=== PATIENT | male | born 1975 | race Caucasian/White ===

== ENCOUNTER 2016-08-26 16:02 | Inpatient (IN) | payer OTHER ==
[2016-08-26 18:11] VITALS: BMI 21.9
--- NOTE | 2016-08-26 19:54 | HP ---
COWS - Scale Resting Pulse: 1= [place] 81-100 Sweatin= Chills/Flushing Restless Observation: 1= Difficult to Sit Still Pupil Size: 0= Normal to Room Light Bone or Joint Aches: 2= Severe Diffuse Aches Runny Nose/ Eye Tearin= Runny Nose/Eyes GI Upset > 30mins: 1= Stomach Cramp Tremor Observation: 2= Slight Tremor Visible Yawning Observation: 2= >3x During Session Anxiety or Irritability: 2=Irritable/Anxious Goose Flesh Skin: 0=Smooth Skin COWS Score: 14 Admission [facility] Chief Complaint: WITHDRAWAL SX Allergies/Adverse Reactions: Allergies Allergy/AdvReac Type Severity Reaction Status Date / Time No Known Allergies Allergy Verified 10/29/13 17:07 History of Present Illness: 40 YEARS OLD MALE WITH LONG HISTORY OF OPIOID NICOTINE DEPENDENCE HAS DIABETES II HYPERTENSION WEIGHT LOSS AND DEPRESSION IS ADMITTED TO DETOX Exam Limitations: No Limitations - Ebola screening Have you traveled outside of the country in the last 21 days: No Have you had contact with anyone from an Ebola affected area: No Have you been sick,other than usual withdrawal symptoms: No Do you have a fever: No - Review of Systems Constitutional: Chills, Loss of Appetite, Changes in sleep, Unintentional Wgt. Loss, Unexplained wgt Loss EENT: reports: No Symptoms Reported Respiratory: reports: SOB with Exertion Cardiac: reports: No Symptoms Reported, Other (HEART ATTACK 2010) GI: reports: Poor Appetite, Poor Fluid Intake, Abdominal cramping : reports: No Symptoms Reported Musculoskeletal: reports: No Symptoms Reported Integumentary: reports: Change in Color (BOTH INNER ELBOWS) Neuro: reports: Tremors Endocrine: reports: No Symptoms Reported Hematology: reports: No Symptoms Reported Psychiatric: reports: Judgement Intact, Orientated x3, Depressed Other Systems: Reviewed and Negative Patient History - Patient Medical History Hx Anemia: No Hx Asthma: No Hx Chronic Obstructive Pulmonary Disease (COPD): No Hx Cancer: No Hx Cardiac Disorders: Yes (CAD - [place] 2010) Hx Congestive Heart Failure: No Hx Hypertension: No Hx Hypercholesterolemia: No Hx Pacemaker: No HX Cerebrovascular Accident: No Hx Seizures: No Hx Dementia: No Hx Diabetes: Yes (METFORMIN 1000MG) Hx Gastrointestinal Disorders: No Hx Liver Disease: No Hx Genitourinary Disorders: No Hx Sexually Transmitted Disorders: No Hx Renal Disease (ESRD): No Hx Thyroid Disease: No Hx Human Immunodeficiency Virus (HIV): No (NEGATIVE HX) Hx Hepatitis C: No Hx Depression: Yes Hx Suicide Attempt: No Hx Bipolar Disorder: No Hx Schizophrenia: No - Patient Surgical History Past Surgical History: Yes Hx Neurologic Surgery: No Hx Cataract Extraction: No Hx Cardiac Surgery: Yes (Cardiac cath with 1 stent in 2010) Hx Lung Surgery: No Hx Breast Surgery: No Hx Breast Biopsy: No Hx Abdominal Surgery: No Hx Appendectomy: No Hx Cholecystectomy: No Hx Genitourinary Surgery: No Hx Orthopedic Surgery: No Other Surgical History: stent in 2010 Anesthesia Reaction: No - PPD History Previous Implant?: Yes Documented Results: Negative w/o proof Implanted On Prior R Admission?: Yes Date: 08/08/13 PPD to be Administered?: No - Smoking Cessation Smoking history: Current every day smoker Have you smoked in the past 12 months: Yes Aproximately how many cigarettes per day: 20 Cigars Per Day: 0 Hx Chewing Tobacco Use: No Initiated information on smoking cessation: Yes 'Breaking Loose' booklet given: 08/26/16 - Substance & Tx. History Hx Alcohol Use: No Hx Substance Use: Yes Substance Use Type: Opiates Hx Substance Use Treatment: Yes - Substances Abused Heroin Route: Injection Frequency: Daily Amount used: 15 BAGS Age of first use: 28 Date of Last Use: 08/26/16 Family Disease History - Family Disease History Family Disease History: Diabetes: Father (), Mother (), CA: Father, Mother Admission Physical Exam BHS - Vital Signs Vital Signs: Vital Signs - 24 hr 08/26/16 18:07 Temperature 97.8 F Pulse Rate 96 H Respiratory 20 Rate Blood Pressure 146/96 - Physical General Appearance: Yes: Appropriately Dressed, Mild Distress, Thin, Tremorous, Irritable, Sweating, Anxious HEENTM: Yes: Hearing grossly Normal, Normal ENT Inspection, Normocephalic, Normal Voice Respiratory: Yes: Chest Non-Tender, Lungs Clear, Normal Breath Sounds, No Respiratory Distress, No Accessory Muscle Use Neck: Yes: Supple, Trachea in good position Breast: Yes: Breasts Symetrical Cardiology: Yes: Regular Rhythm, S1, S2, Tachycardia Abdominal: Yes: Non Tender, Soft Genitourinary: Yes: Within Normal Limits Back: Yes: Normal Inspection Musculoskeletal: Yes: full range of Motion, Gait Steady, Back pain, Muscle Pain Extremities: Yes: Within Normal Limits, Non-Tender, Tremors Neurological: Yes: Fully Oriented, Alert, Motor Strength 5/5, Normal Response, Depressed Affect Integumentary: Yes: Warm, Track Vazquez Lymphatic: Yes: Within Normal Limits - Diagnostic (1) Nicotine dependence Current Visit: Yes Status: Active (2) Opioid dependence with withdrawal Current Visit: Yes Status: Acute (3) Diabetes mellitus type II, controlled Current Visit: Yes Status: Chronic Qualifiers: Diabetes mellitus complication status: without complication Diabetes mellitus fci insulin use: with fci use Qualified Code(s): E11.9 - Type 2 diabetes mellitus without complications; Z79.4 - group home ( current) use of insulin (4) Weight loss Current Visit: Yes Status: Acute (5) History of heart attack Current Visit: Yes Status: Resolved Cleared for Admission [facility] - Detox or Rehab [facility] Level of Care: Medically Managed Detox Regimen/Protocol: Methadone [facility] Breath Alcohol Content Breath Alcohol Content: 0 Urine Drug Screen - Results Drug Screen Negative: No Urine Drug Screen Results: OPI-Opiates
[2016-08-26] MEDS ORDERED: guaiFENesin/D-METHORPHAN HB 10 ML UNIT-DOSE CUPS PO PRN (20:01)
[2016-08-26] MEDS ORDERED: MAG HYDROX/AL HYDROX/SIMETH 30 ML UNIT-DOSE CUP PO PRN (20:01)
[2016-08-26] MEDS ORDERED: NICOTINE POLACRILEX 4 MG GUM BC PRN (20:01)
[2016-08-26] MEDS ORDERED: LOPERAMIDE HCL 2 MG CAPSULE PO PRN (20:01)
[2016-08-26] MEDS ORDERED: METHADONE HCL 10 MG TABLET (FOR DETOX USE ONLY) PO ONE ×2 (20:01→23:00)
[2016-08-26] MEDS ORDERED: ACETAMINOPHEN 325 MG TABLET (FP) PO PRN (20:01)
[2016-08-26] MEDS ORDERED: diphenhydrAMINE HCL 50 MG CAPSULE PO PRN (20:01)
[2016-08-26] MEDS ORDERED: MAGNESIUM CITRATE 300 ML BOTTLE PO PRN (20:01)
[2016-08-26] MEDS ORDERED: MENTHOL/PHENOL 1 EACH UD MM PRN (20:01)
[2016-08-26] MEDS ORDERED: IBUPROFEN 400 MG TABLET (FP) PO PRN (20:01)
[2016-08-26] MEDS ORDERED: MAGNESIUM HYDROX 2400MG/30ML ORAL SUSPENSION 30 ML CUP PO PRN (20:01)
[2016-08-26] MEDS ORDERED: P-EPHED 60MG/TRIPROLIDI 2.5MG TABLET PO PRN (20:01)
[2016-08-26] MEDS ORDERED: METHADONE HCL 10 MG TABLET (FOR DETOX USE ONLY) ONE (23:04)
[2016-08-26] MEDS ORDERED: INSULIN (NOVOLOG) ASPART 100 UNITS/ML 10ML VIAL ONE (23:04)
[2016-08-26] MEDS: INSULIN DETEMIR 100 UNITS/ML MDV SQ SCH (23:10)
[2016-08-26] MEDS: INSULIN SLIDING SCALE (NOVOLOG) 1 VIAL SQ SCH (23:10)
[2016-08-26] MEDS: THIAMINE HCL 100 MG TABLET (FP) PO SCH (23:10)
[2016-08-27 00:12] LABS: URINE APPEARANCE CLEAR; URINE BILIRUBIN NEGATIVE (NEGATIVE); URINE BLOOD NEGATIVE (NEGATIVE); URINE COLOR STRAW; URINE GLUCOSE (UA) 3+ (NEGATIVE); URINE KETONE 1+ (NEGATIVE); URINE LEUK ESTERASE NEGATIVE (NEGATIVE); URINE NITRITE NEGATIVE (NEGATIVE); URINE PROTEIN NEGATIVE (NEGATIVE); URINE UROBILINOGEN NEGATIVE E.U./dl (0.2-1.0)
[2016-08-27] MEDS: diazePAM 5 MG TABLET PO PRN ×5 (05:19→22:53)
[2016-08-27] MEDS: INSULIN SLIDING SCALE (NOVOLOG) 1 VIAL SQ SCH ×4 (08:00→22:55)
[2016-08-27] MEDS: metFORMIN HCL 500 MG TABLET (FP) PO SCH ×2 (08:00→17:50)
[2016-08-27] MEDS ORDERED: INSULIN (NOVOLOG) ASPART 100 UNITS/ML 10ML VIAL ONE ×4 (08:39→22:48)
[2016-08-27] MEDS ORDERED: METHADONE HCL 10 MG TABLET (FOR DETOX USE ONLY) PO ONE (10:00)
[2016-08-27 10:31] LABS: MCH 30.6 pg (25.7-33.7); MCHC 34.2 g/dl (32.0-35.9); MEAN CELL VOLUME 89.3 fl (80-96); MEAN PLT VOLUME 8.3 fl (7.5-11.1); PLATELET COUNT 166 K/MM3 (134-434); RDW 12.1 % (11.9-15.9); WHITE BLOOD COUNT 6.4 K/mm3 (4.0-10.0)
[2016-08-27] MEDS: ASPIRIN 81 MG CHEWABLE TABLETS PO SCH (10:33)
[2016-08-27] MEDS: PRENATAL VITAMINS W/ FOLIC ACID TABLET (FP) PO SCH (10:33)
[2016-08-27] MEDS: LISINOPRIL 5 MG TABLET (FP) PO SCH (10:33)
[2016-08-27] MEDS: NICOTINE 21 MG/24 HOURS TOPICAL PATCH TD SCH (10:36)
[2016-08-27 11:11] LABS: ALBUMIN 3.1 g/dl (3.4-5.0); ALK PHOS 77 U/L (45-117); ANION GAP 10 (8-16); BILIRUBIN,TOTAL 0.2 mg/dL (0.2-1.0); CALCIUM 8.4 mg/dL (8.5-10.1); CO2 29 mmol/L (21-32); CREATININE 0.8 mg/dL (0.7-1.3); GLUCOSE,RANDOM 275 mg/dL (74-106); SGOT/AST 6 U/L (15-37); SGPT/ALT 13 U/L (12-78); TOT PROT 5.7 g/dl (6.4-8.2)
--- NOTE | 2016-08-27 11:39 | PN ---
[facility] COWS - Scale Resting Pulse: 0= [place] 80 or Below Sweatin= Chills/Flushing Restless Observation: 3= Extraneous Movement Pupil Size: 1= Pupils >than Normal Bone or Joint Aches: 2= Severe Diffuse Aches Runny Nose/ Eye Tearin= Runny Nose/Eyes GI Upset > 30mins: 3= Vomiting/Diarrhea Tremor Observation of Outstretched Hands: 2= Slight Tremor Visible Yawning Observation: 1= 1-2x During Session Anxiety or Irritability: 2=Irritable/Anxious Goose Flesh Skin: 0=Smooth Skin COWS Score: 17 BHS Progress Note (SOAP) Subjective: ALERT,IRRITABLE,ANXIOUS,INTERRUPTED SLEEP,TREMOR,PAIN IN THE BODY AND BACK Objective: 08/27/16 11:36 Vital Signs Temperature 98.3 F 08/27/16 09:45 Pulse Rate 62 08/27/16 09:45 Respiratory Rate 18 08/27/16 09:45 Blood Pressure 117/71 08/27/16 09:45 O2 Sat by Pulse Oximetry (%) EKG SINUS BRADYCARDIA 53/CA,INVERTED T IN V2,V3 NO CHAEST PAIN,NO SOB,NO DIZZINESS Laboratory Last Values WBC 6.4 K/mm3 (4.0-10.0) 08/27/16 07:00 RBC 4.36 M/mm3 (4.00-5.60) 08/27/16 07:00 Hgb 13.3 GM/dL (11.7-16.9) D 08/27/16 07:00 Hct 38.9 % (35.4-49) 08/27/16 07:00 MCV 89.3 fl (80-96) 08/27/16 07:00 MCHC 34.2 g/dl (32.0-35.9) 08/27/16 07:00 RDW 12.1 % (11.9-15.9) 08/27/16 07:00 Plt Count 166 K/MM3 (134-434) 08/27/16 07:00 MPV 8.3 fl (7.5-11.1) 08/27/16 07:00 POC Glucometer 258 UNITS (()) 08/27/16 05:21 Urine Color Straw 08/26/16 00:00 Urine Appearance Clear 08/26/16 00:00 Urine pH 5.0 (5.0-8.0) D 08/26/16 00:00 Urine Protein Negative (NEGATIVE) 08/26/16 00:00 Urine Glucose (UA) 3+ (NEGATIVE) H 08/26/16 00:00 Urine Ketones 1+ (NEGATIVE) H 08/26/16 00:00 Urine Blood Negative (NEGATIVE) 08/26/16 00:00 Urine Nitrite Negative (NEGATIVE) 08/26/16 00:00 Urine Bilirubin Negative (NEGATIVE) 08/26/16 00:00 Urine Urobilinogen Negative E.U./dl (0.2-1.0) 08/26/16 00:00 Ur Leukocyte Esterase Negative (NEGATIVE) 08/26/16 00:00 LABS PENDING Assessment: 08/27/16 11:38 WITHDRAWAL SYMPTOM Plan: CONTINUE DETOX,BGM MONITORING WITH INSULIN COVERAGE
--- NOTE | 2016-08-27 15:33 | CONSULT ---
[facility] Psychiatric Consult - Data Date of interview: 08/27/16 Admission source: [facility] Identifying data: This is a 40 year old single male who is employed and domiciled. Substance Abuse History: Patient reports he is using heroin 10 -15 bags a day. Medical History: diabetes, CAD, Hypertension Psychiatric History: patient reports history of insomnia and anxiety, states was on seroquel in the past for insomnia, at present does not want any medications "just detox meds". Physical/Sexual Abuse/Trauma History: denies history of abuse Mental Status Exam - Mental Status Exam Alert and Oriented to: Time, Place, Person Cognitive Function: Grossly Intact Patient Appearance: Well Groomed Affect: Appropriate, Mood Congruent Patient Behavior: Sedated Speech Pattern: Clear, Appropriate Voice Loudness: Normal Thought Process: Intact, Circumstantial Thought Disorder: Not Present Hallucinations: Denies Suicidal Ideation: Denies Homicidal Ideation: Denies Insight/Judgement: Fair Sleep: Fair Appetite: Fair Muscle strength/Tone: Normal Gait/Station: Normal Psychiatric Findings - Problem List ([place] 1, 2,3) (1) Opioid dependence with withdrawal Current Visit: Yes Status: Acute - Initial Treatment Plan Initial Treatment Plan: continue detox. protocol.
--- NOTE | 2016-08-27 17:19 | EKG ---
Test Reason : Blood Pressure : / mmHG Vent. Rate : 056 BPM Atrial Rate : 056 BPM P-R Int : 146 ms QRS Dur : 098 ms QT Int : 458 ms P-R-T Axes : 032 037 -33 degrees QTc Int : 441 ms SINUS BRADYCARDIA WHEN COMPARED WITH ECG OF 26-AUG-2016 21:36, T WAVE VARIATION Confirmed by KEIRY RILEY MD ([id number]) on 08/27/2016 5:19:29 PM Referred By: Confirmed By:KEIRY RILEY MD
--- NOTE | 2016-08-27 17:20 | EKG ---
Test Reason : Blood Pressure : / mmHG Vent. Rate : 061 BPM Atrial Rate : 061 BPM P-R Int : 140 ms QRS Dur : 100 ms QT Int : 470 ms P-R-T Axes : 050 033 -63 degrees QTc Int : 473 ms NORMAL SINUS RHYTHM CANNOT RULE OUT INFERIOR INFARCT , AGE UNDETERMINED ABNORMAL ECG WHEN COMPARED WITH ECG OF 09-AUG-2013 14:22, QT HAS LENGTHENED Confirmed by KEIRY RILEY MD ([id number]) on 08/27/2016 5:20:20 PM Referred By: Confirmed By:KEIRY RILEY MD
[2016-08-27] MEDS: POTASSIUM CHLORIDE ORAL LIQUID 20 MEQ/15 ML PO SCH ×2 (19:00→22:55)
[2016-08-27] MEDS: THIAMINE HCL 100 MG TABLET (FP) PO SCH (22:53)
[2016-08-27] MEDS: INSULIN DETEMIR 100 UNITS/ML MDV SQ SCH (22:55)
[2016-08-28] MEDS: diazePAM 5 MG TABLET PO PRN ×5 (03:04→22:22)
[2016-08-28] MEDS ORDERED: INSULIN (NOVOLOG) ASPART 100 UNITS/ML 10ML VIAL ONE ×4 (07:37→21:25)
[2016-08-28] MEDS: metFORMIN HCL 500 MG TABLET (FP) PO SCH ×2 (07:38→16:47)
[2016-08-28] MEDS: INSULIN SLIDING SCALE (NOVOLOG) 1 VIAL SQ SCH ×4 (07:40→22:24)
[2016-08-28] MEDS ORDERED: METHADONE HCL 5 MG TABLET (FOR DETOX USE ONLY) PO ONE (10:00)
[2016-08-28] MEDS: ASPIRIN 81 MG CHEWABLE TABLETS PO SCH (10:46)
[2016-08-28] MEDS: PRENATAL VITAMINS W/ FOLIC ACID TABLET (FP) PO SCH (10:46)
[2016-08-28] MEDS: LISINOPRIL 5 MG TABLET (FP) PO SCH (10:46)
[2016-08-28] MEDS: POTASSIUM CHLORIDE ORAL LIQUID 20 MEQ/15 ML PO SCH ×2 (10:46→22:24)
[2016-08-28] MEDS: NICOTINE 21 MG/24 HOURS TOPICAL PATCH TD SCH (11:15)
--- NOTE | 2016-08-28 11:30 | PN ---
S COWS - Scale Resting Pulse: 0= [place] 80 or Below Sweatin=Flushed/Facial Moisture Restless Observation: 1= Difficult to Sit Still Pupil Size: 0= Normal to Room Light Bone or Joint Aches: 2= Severe Diffuse Aches Runny Nose/ Eye Tearin= Runny Nose/Eyes GI Upset > 30mins: 2= Nausea/Diarrhea Tremor Observation of Outstretched Hands: 2= Slight Tremor Visible Yawning Observation: 2= >3x During Session Anxiety or Irritability: 2=Irritable/Anxious Goose Flesh Skin: 0=Smooth Skin COWS Score: 15 S Progress Note (SOAP) Subjective: agitation anxiety sweats irritable interrupted sleep Objective: 08/28/16 11:29 Vital Signs Temperature 96.4 F L 08/28/16 09:43 Pulse Rate 63 08/28/16 09:43 Respiratory Rate 16 08/28/16 09:43 Blood Pressure 133/88 08/28/16 09:43 O2 Sat by Pulse Oximetry (%) Laboratory Tests 08/26/16 08/26/16 08/26/16 00:00 21:27 23:00 WBC RBC Hgb Hct MCV MCHC RDW Plt Count MPV Sodium Potassium Chloride Carbon Dioxide Anion Gap BUN Creatinine Creat Clearance w eGFR POC Glucometer 458 491 Random Glucose Calcium Total Bilirubin AST ALT Alkaline Phosphatase Total Protein Albumin Urine Color Straw Urine Appearance Clear Urine pH 5.0 D Ur Specific [place] <= 1.005 Urine Protein Negative Urine Glucose (UA) 3+ H Urine Ketones 1+ H Urine Blood Negative Urine Nitrite Negative Urine Bilirubin Negative Urine Urobilinogen Negative Ur Leukocyte Esterase Negative RPR Titer 08/27/16 08/27/16 08/27/16 05:21 07:00 07:00 WBC 6.4 RBC 4.36 Hgb 13.3 D Hct 38.9 MCV 89.3 MCHC 34.2 RDW 12.1 Plt Count 166 MPV 8.3 Sodium 139 Potassium 3.4 L Chloride 100 Carbon Dioxide 29 Anion Gap 10 BUN 18 D Creatinine 0.8 D Creat Clearance w eGFR > 60 POC Glucometer 258 Random Glucose 275 H Calcium 8.4 L Total Bilirubin 0.2 D AST 6 L D ALT 13 D Alkaline Phosphatase 77 D Total Protein 5.7 L Albumin 3.1 L Urine Color Urine Appearance Urine pH Ur Specific [place] Urine Protein Urine Glucose (UA) Urine Ketones Urine Blood Urine Nitrite Urine Bilirubin Urine Urobilinogen Ur Leukocyte Esterase RPR Titer 08/27/16 08/27/16 08/27/16 07:00 11:30 17:48 WBC RBC Hgb Hct MCV MCHC RDW Plt Count MPV Sodium Potassium Chloride Carbon Dioxide Anion Gap BUN Creatinine Creat Clearance w eGFR POC Glucometer 410 304 Random Glucose Calcium Total Bilirubin AST ALT Alkaline Phosphatase Total Protein Albumin Urine Color Urine Appearance Urine pH Ur Specific [place] Urine Protein Urine Glucose (UA) Urine Ketones Urine Blood Urine Nitrite Urine Bilirubin Urine Urobilinogen Ur Leukocyte Esterase RPR Titer Nonreactive 08/27/16 08/28/16 22:46 05:33 WBC RBC Hgb Hct MCV MCHC RDW Plt Count MPV Sodium Potassium Chloride Carbon Dioxide Anion Gap BUN Creatinine Creat Clearance w eGFR POC Glucometer 313 209 Random Glucose Calcium Total Bilirubin AST ALT Alkaline Phosphatase Total Protein Albumin Urine Color Urine Appearance Urine pH Ur Specific [place] Urine Protein Urine Glucose (UA) Urine Ketones Urine Blood Urine Nitrite Urine Bilirubin Urine Urobilinogen Ur Leukocyte Esterase RPR Titer potassium 3.4; replenish with k-dur 20meq x 4 days awake/alert ambulating no acute distress Assessment: 08/28/16 11:30 withdrawal sx Plan: continue detox increase fluids k-dur 20meq x 4 days
[2016-08-28] MEDS: INSULIN DETEMIR 100 UNITS/ML MDV SQ SCH (21:03)
[2016-08-28] MEDS: THIAMINE HCL 100 MG TABLET (FP) PO SCH (22:24)
[2016-08-29] MEDS: diazePAM 5 MG TABLET PO PRN ×4 (02:17→17:20)
[2016-08-29] MEDS ORDERED: INSULIN (NOVOLOG) ASPART 100 UNITS/ML 10ML VIAL ONE ×3 (07:34→17:19)
[2016-08-29] MEDS: INSULIN SLIDING SCALE (NOVOLOG) 1 VIAL SQ SCH ×3 (07:57→17:21)
[2016-08-29] MEDS: metFORMIN HCL 500 MG TABLET (FP) PO SCH ×2 (07:57→17:20)
[2016-08-29] MEDS ORDERED: METHADONE HCL 5 MG TABLET (FOR DETOX USE ONLY) PO ONE (10:00)
[2016-08-29 10:14] LABS: ALBUMIN 3.2 g/dl (3.4-5.0); ALK PHOS 77 U/L (45-117); ANION GAP 11 (8-16); BILIRUBIN,TOTAL 0.3 mg/dL (0.2-1.0); CALCIUM 8.7 mg/dL (8.5-10.1); CO2 28 mmol/L (21-32); CREATININE 0.8 mg/dL (0.7-1.3); GLUCOSE,RANDOM 183 mg/dL (74-106); SGOT/AST 9 U/L (15-37); SGPT/ALT 15 U/L (12-78); TOT PROT 6.1 g/dl (6.4-8.2)
[2016-08-29] MEDS: LISINOPRIL 5 MG TABLET (FP) PO SCH (10:47)
[2016-08-29] MEDS: POTASSIUM CHLORIDE ORAL LIQUID 20 MEQ/15 ML PO SCH (10:47)
[2016-08-29] MEDS: NICOTINE 21 MG/24 HOURS TOPICAL PATCH TD SCH (10:47)
[2016-08-29] MEDS: PRENATAL VITAMINS W/ FOLIC ACID TABLET (FP) PO SCH (10:47)
[2016-08-29] MEDS: ASPIRIN 81 MG CHEWABLE TABLETS PO SCH (10:47)
--- NOTE | 2016-08-29 10:57 | PN ---
S Progress Note (SOAP) Subjective: ALERT,IRRITABLE,ANXIOUS,INTERRUPTED SLEEP Objective: 08/29/16 10:55 Vital Signs Temperature 99.1 F 08/29/16 09:25 Pulse Rate 77 08/29/16 09:25 Respiratory Rate 20 08/29/16 09:25 Blood Pressure 120/89 08/29/16 09:25 O2 Sat by Pulse Oximetry (%) Assessment: 08/29/16 10:55 WITHDRAWAL SYMPTOM Laboratory Last Values WBC 6.4 K/mm3 (4.0-10.0) 08/27/16 07:00 RBC 4.36 M/mm3 (4.00-5.60) 08/27/16 07:00 Hgb 13.3 GM/dL (11.7-16.9) D 08/27/16 07:00 Hct 38.9 % (35.4-49) 08/27/16 07:00 MCV 89.3 fl (80-96) 08/27/16 07:00 MCHC 34.2 g/dl (32.0-35.9) 08/27/16 07:00 RDW 12.1 % (11.9-15.9) 08/27/16 07:00 Plt Count 166 K/MM3 (134-434) 08/27/16 07:00 MPV 8.3 fl (7.5-11.1) 08/27/16 07:00 Sodium 135 mmol/L (136-145) L 08/29/16 07:00 Potassium 3.8 mmol/L (3.5-5.1) 08/29/16 07:00 Chloride 96 mmol/L (98-107) L 08/29/16 07:00 Carbon Dioxide 28 mmol/L (21-32) 08/29/16 07:00 Anion Gap 11 (8-16) 08/29/16 07:00 BUN 12 mg/dL (7-18) D 08/29/16 07:00 Creatinine 0.8 mg/dL (0.7-1.3) 08/29/16 07:00 Creat Clearance w eGFR > 60 (>60) 08/29/16 07:00 POC Glucometer 201 UNITS (()) 08/29/16 07:01 Random Glucose 183 mg/dL (74-106) H D 08/29/16 07:00 Calcium 8.7 mg/dL (8.5-10.1) 08/29/16 07:00 Total Bilirubin 0.3 mg/dL (0.2-1.0) D 08/29/16 07:00 AST 9 U/L (15-37) L D 08/29/16 07:00 ALT 15 U/L (12-78) 08/29/16 07:00 Alkaline Phosphatase 77 U/L (45-117) 08/29/16 07:00 Total Protein 6.1 g/dl (6.4-8.2) L 08/29/16 07:00 Albumin 3.2 g/dl (3.4-5.0) L 08/29/16 07:00 Urine Color Straw 08/26/16 00:00 Urine Appearance Clear 08/26/16 00:00 Urine pH 5.0 (5.0-8.0) D 08/26/16 00:00 Ur Specific [place] <= 1.005 (1.005-1.025) 08/26/16 00:00 Urine Protein Negative (NEGATIVE) 08/26/16 00:00 Urine Glucose (UA) 3+ (NEGATIVE) H 08/26/16 00:00 Urine Ketones 1+ (NEGATIVE) H 08/26/16 00:00 Urine Blood Negative (NEGATIVE) 08/26/16 00:00 Urine Nitrite Negative (NEGATIVE) 08/26/16 00:00 Urine Bilirubin Negative (NEGATIVE) 08/26/16 00:00 Urine Urobilinogen Negative E.U./dl (0.2-1.0) 08/26/16 00:00 Ur Leukocyte Esterase Negative (NEGATIVE) 08/26/16 00:00 RPR Titer Nonreactive (NONREACTIVE) 08/27/16 07:00 Plan: WITHDRAWAL SYMPTOM,CONTINUE DETOX,BGM MONITORING
[2016-08-29 18:24] VITALS: BP 97/63; PULSE 55; TEMP 98.4
--- NOTE | 2016-08-29 19:05 | DS ---
[facility] Detox Discharge Summary Admission Date: 08/26/16 Discharge Date: 08/29/16 - History Present History: Opioid Dependence Additional Comments: patient insists to leave the unit, refuses to wait face to face with the provider refuses e prescription, consider aftercare as per arranged by the counselor Pertinent Past History: diabetes ii - Physical Exam Results Vital Signs: Vital Signs Temperature 98.4 F 08/29/16 18:23 Pulse Rate 55 L 08/29/16 18:23 Respiratory Rate 16 08/29/16 18:23 Blood Pressure 97/63 08/29/16 18:23 O2 Sat by Pulse Oximetry (%) Pertinent Admission Physical Exam Findings: withdrawal sx Laboratory Last Values WBC 6.4 K/mm3 (4.0-10.0) 08/27/16 07:00 RBC 4.36 M/mm3 (4.00-5.60) 08/27/16 07:00 Hgb 13.3 GM/dL (11.7-16.9) D 08/27/16 07:00 Hct 38.9 % (35.4-49) 08/27/16 07:00 MCV 89.3 fl (80-96) 08/27/16 07:00 MCHC 34.2 g/dl (32.0-35.9) 08/27/16 07:00 RDW 12.1 % (11.9-15.9) 08/27/16 07:00 Plt Count 166 K/MM3 (134-434) 08/27/16 07:00 MPV 8.3 fl (7.5-11.1) 08/27/16 07:00 Sodium 135 mmol/L (136-145) L 08/29/16 07:00 Potassium 3.8 mmol/L (3.5-5.1) 08/29/16 07:00 Chloride 96 mmol/L (98-107) L 08/29/16 07:00 Carbon Dioxide 28 mmol/L (21-32) 08/29/16 07:00 Anion Gap 11 (8-16) 08/29/16 07:00 BUN 12 mg/dL (7-18) D 08/29/16 07:00 Creatinine 0.8 mg/dL (0.7-1.3) 08/29/16 07:00 Creat Clearance w eGFR > 60 (>60) 08/29/16 07:00 POC Glucometer 319 UNITS (()) 08/29/16 16:50 Random Glucose 183 mg/dL (74-106) H D 08/29/16 07:00 Calcium 8.7 mg/dL (8.5-10.1) 08/29/16 07:00 Total Bilirubin 0.3 mg/dL (0.2-1.0) D 08/29/16 07:00 AST 9 U/L (15-37) L D 08/29/16 07:00 ALT 15 U/L (12-78) 08/29/16 07:00 Alkaline Phosphatase 77 U/L (45-117) 08/29/16 07:00 Total Protein 6.1 g/dl (6.4-8.2) L 08/29/16 07:00 Albumin 3.2 g/dl (3.4-5.0) L 08/29/16 07:00 Urine Color Straw 08/26/16 00:00 Urine Appearance Clear 08/26/16 00:00 Urine pH 5.0 (5.0-8.0) D 08/26/16 00:00 Ur Specific [place] <= 1.005 (1.005-1.025) 08/26/16 00:00 Urine Protein Negative (NEGATIVE) 08/26/16 00:00 Urine Glucose (UA) 3+ (NEGATIVE) H 08/26/16 00:00 Urine Ketones 1+ (NEGATIVE) H 08/26/16 00:00 Urine Blood Negative (NEGATIVE) 08/26/16 00:00 Urine Nitrite Negative (NEGATIVE) 08/26/16 00:00 Urine Bilirubin Negative (NEGATIVE) 08/26/16 00:00 Urine Urobilinogen Negative E.U./dl (0.2-1.0) 08/26/16 00:00 Ur Leukocyte Esterase Negative (NEGATIVE) 08/26/16 00:00 RPR Titer Nonreactive (NONREACTIVE) 08/27/16 07:00 lab noted - Treatment Hospital Course: Detox Protocol Followed, Responded well - Medication Discharge Medications: Ambulatory Orders Insulin (Novolog) [Novolog -] 0 units SQ AC PRN 10/29/13 Metformin HCl [Glucophage] 1,000 mg PO BID 10/29/13 Insulin Glargine,Hum.rec.anlog [Lantus Solostar PEN -] 24 units SQ HS #1 ins Metformin HCl [Glucophage -] 500 mg PO BID@0700,1630 #60 tablet 11/03/13 Quetiapine Fumarate [Seroquel -] 50 mg PO HS #30 tablet 11/03/13 - Diagnosis (1) Nicotine dependence Status: Active (2) Opioid dependence with withdrawal Status: Acute (3) Diabetes mellitus type II, controlled Status: Chronic Qualifiers: Diabetes mellitus complication status: without complication Diabetes mellitus chcf insulin use: with chcf use Qualified Code(s): E11.9 - Type 2 diabetes mellitus without complications (4) Weight loss Status: Acute - AMA Did Patient Leave Against Medical Advice: Yes
[2016-08-30] MEDS ORDERED: METHADONE HCL 10 MG TABLET (FOR DETOX USE ONLY) PO ONE (10:00)
[2016-08-31] MEDS ORDERED: METHADONE HCL 5 MG TABLET (FOR DETOX USE ONLY) PO ONE (06:00)
== END 2016-08-29 18:53 | disposition left against medical advice (07) | DRG 894 ==
LOC: YASAS 16:02 → Y6N 21:13
PROVIDERS: ADMIT Internal Medicine Addiction Medicine; ATTEND Internal Medicine Addiction Medicine
DX: F11.23 Opioid dependence with withdrawal (principal); F17.210 Nicotine dependence, cigarettes, uncomplicated; F41.9 Anxiety disorder, unspecified; G47.00 Insomnia, unspecified; E11.9 Type 2 diabetes mellitus without complications; Z79.4 Long term (current) use of insulin; Z79.84 Long term (current) use of oral hypoglycemic drugs; I25.2 Old myocardial infarction; I25.10 Atherosclerotic heart disease of native coronary artery without angina pectoris; Z95.5 Presence of coronary angioplasty implant and graft; R63.4 Abnormal weight loss; Z68.21 Body mass index [BMI] 21.0-21.9, adult
CPT/HCPCS: 36415; 80053; 81003; 85027; 86593; 93005; 93010

== ENCOUNTER 2018-02-03 12:17 | Inpatient (IN) | payer OTHER ==
[2018-02-03 12:34] VITALS: BMI 23.2
--- NOTE | 2018-02-03 15:08 | HP ---
COWS - Scale Resting Pulse: 1= [place] 81-100 Sweatin= Chills/Flushing Restless Observation: 3= Extraneous Movement Pupil Size: 1= Pupils >than Normal Bone or Joint Aches: 2= Severe Diffuse Aches Runny Nose/ Eye Tearin= Runny Nose/Eyes GI Upset > 30mins: 2= Nausea/Diarrhea Tremor Observation: 2= Slight Tremor Visible Yawning Observation: 2= >3x During Session Anxiety or Irritability: 2=Irritable/Anxious Goose Flesh Skin: 0=Smooth Skin COWS Score: 18 Admission ROS S - HPI Chief Complaint: i need help to stop using heroin Allergies/Adverse Reactions: Allergies Allergy/AdvReac Type Severity Reaction Status Date / Time No Known Allergies Allergy Verified 02/03/18 14:30 History of Present Illness: this 42 years old male with heroin dependence,seeking detox,withdrawal symptom, last detox 08/26/16 to 08/29/16 history of htn,type 2 dm,iddm, nicotine dependence weight loss positive ppd multiple admissions to detox,but keep relapsing longest sobriety 2 and half years - Ebola screening Have you traveled outside of the country in the last 21 days: No Have you had contact with anyone from an Ebola affected area: No Have you been sick,other than usual withdrawal symptoms: No Do you have a fever: No - Review of Systems Constitutional: Chills, Diaphoresis, Loss of Appetite, Malaise, Night Sweats, Changes in sleep, Weakness, Unintentional Wgt. Loss EENT: reports: Tearing, Nose Congestion Respiratory: reports: No Symptoms reported Cardiac: reports: No Symptoms Reported GI: reports: Nausea, Poor Appetite, Abdominal cramping : reports: No Symptoms Reported Musculoskeletal: reports: Back Pain, Joint Pain, Muscle Pain, Joint Stiffness Integumentary: reports: Dryness Neuro: reports: Headache, Tremors Endocrine: reports: No Symptoms Reported Hematology: reports: No Symptoms Reported Psychiatric: reports: No Sypmtoms Reported, Judgement Intact, Mood/Affect Appropiate, Orientated x3 Patient History - Patient Medical History Hx Anemia: No Hx Asthma: No Hx Chronic Obstructive Pulmonary Disease (COPD): No Hx Cancer: No Hx Cardiac Disorders: No Hx Congestive Heart Failure: No Hx Hypertension: Yes Hx Hypercholesterolemia: No Hx Pacemaker: No HX Cerebrovascular Accident: No Hx Seizures: No Hx Dementia: No Hx Diabetes: Yes (IDDM) Hx Gastrointestinal Disorders: No Hx Liver Disease: No Hx Genitourinary Disorders: No Hx Sexually Transmitted Disorders: No Hx Renal Disease (ESRD): No Hx Thyroid Disease: No Hx Human Immunodeficiency Virus (HIV): No (NEGATIVE HX last 11/29) Hx Hepatitis C: No Hx Depression: No Hx Suicide Attempt: No Hx Bipolar Disorder: No Hx Schizophrenia: No Other Medical History: no suicidal,no homicidal - Patient Surgical History Past Surgical History: Yes Hx Neurologic Surgery: No Hx Cataract Extraction: No Hx Cardiac Surgery: Yes (Cardiac cath with 1 stent in 11/2010) Hx Lung Surgery: No Hx Breast Surgery: No Hx Breast Biopsy: No Hx Abdominal Surgery: No Hx Appendectomy: No Hx Cholecystectomy: No Hx Genitourinary Surgery: No Hx Section: No Hx Orthopedic Surgery: No Other Surgical History: lacerated wound/skin grafting in 06/2017 [facility] Anesthesia Reaction: No - PPD History Previous Implant?: Yes Documented Results: Positive w/o proof Implanted On Prior [facility] Admission?: Yes Date: 08/28/16 PPD to be Administered?: No - Smoking Cessation Smoking history: Current every day smoker Have you smoked in the past 12 months: Yes Aproximately how many cigarettes per day: 20 Cigars Per Day: 0 Hx Chewing Tobacco Use: No Initiated information on smoking cessation: Yes 'Breaking Loose' booklet given: 02/03/18 - Substance & Tx. History Hx Alcohol Use: No Hx Substance Use: Yes Substance Use Type: Heroin Hx Substance Use Treatment: Yes ([facility] 08/26/[facility] to 08/29/16 not completed) - Substances Abused Heroin Route: Injection Frequency: Daily Amount used: 10 bags Age of first use: 28 Date of Last Use: 02/03/18 Family Disease History - Family Disease History Family Disease History: Diabetes: Father (), Mother (), CA: Father, Mother Admission Physical Exam S - Vital Signs Vital Signs: Vital Signs - 24 hr 02/03/18 12:33 Temperature 98.1 F Pulse Rate 92 H Respiratory 18 Rate Blood Pressure 134/99 - Physical General Appearance: Yes: Moderate Distress, Tremorous, Irritable, Sweating, Anxious HEENTM: Yes: Normal ENT Inspection, ALYSA, Pharynx Normal Respiratory: Yes: Lungs Clear, Normal Breath Sounds, No Respiratory Distress Neck: Yes: Supple, Trachea in good position Breast: Yes: Within Normal Limits Cardiology: Yes: Within Normal Limits, Regular Rhythm, Regular Rate, S1, S2 Abdominal: Yes: Within Normal Limits, Normal Bowel Sounds, Non Tender, Soft Genitourinary: Yes: Within Normal Limits Back: Yes: Muscle Spasm Musculoskeletal: Yes: full range of Motion, Back pain, Joint Stiffness, Muscle Pain Extremities: Yes: Normal Inspection, Normal Range of Motion, Tremors Neurological: Yes: linotyper II-XII NML intact, Alert, Motor Strength 5/5 Integumentary: Yes: Dry, Track Vazquez Lymphatic: Yes: Within Normal Limits - Diagnostic (1) Opioid dependence with withdrawal Current Visit: No Status: Acute (2) Nicotine dependence Current Visit: No Status: Active (3) coronary artery disease with stent Current Visit: No Status: Active (4) Type 2 diabetes mellitus Current Visit: No Status: Acute (5) Weight loss Current Visit: No Status: Acute (6) Essential hypertension Current Visit: Yes Status: Acute (7) Status post skin graft Current Visit: Yes Status: Acute (8) Positive PPD Current Visit: Yes Status: Acute (9) IDDM (insulin dependent diabetes mellitus) Current Visit: Yes Status: Acute Cleared for Admission S - Detox or Rehab [facility] Level of Care: Medically Managed Detox Regimen/Protocol: Methadone S Breath Alcohol Content Breath Alcohol Content: 0 Urine Drug Screen - Results Drug Screen Negative: No Urine Drug Screen Results: OPI-Opiates, OXY-Oxycodone
[2018-02-03] MEDS ORDERED: P-EPHED 60MG/TRIPROLIDI 2.5MG TABLET PO PRN (15:20)
[2018-02-03] MEDS ORDERED: MENTHOL/PHENOL 1 EACH UD MM PRN (15:20)
[2018-02-03] MEDS ORDERED: MAG HYDROX/AL HYDROX/SIMETH 30 ML UNIT-DOSE CUP PO PRN (15:20)
[2018-02-03] MEDS ORDERED: guaiFENesin/D-METHORPHAN HB 10 ML UNIT-DOSE CUPS PO PRN (15:20)
[2018-02-03] MEDS ORDERED: LOPERAMIDE HCL 2 MG CAPSULE PO PRN (15:20)
[2018-02-03] MEDS ORDERED: MAGNESIUM HYDROX 2400MG/30ML ORAL SUSPENSION 30 ML CUP PO PRN (15:20)
[2018-02-03] MEDS ORDERED: MAGNESIUM CITRATE 300 ML BOTTLE PO PRN (15:20)
[2018-02-03] MEDS ORDERED: METHADONE HCL 10 MG TABLET (FOR DETOX USE ONLY) PO ONE ×2 (15:45→23:00)
[2018-02-03] MEDS: diazePAM 5 MG TABLET PO PRN ×2 (17:06→22:14)
[2018-02-03] MEDS: metFORMIN HCL 500 MG TABLET (FP) PO SCH (17:06)
[2018-02-03] MEDS: NICOTINE 21 MG/24 HOURS TOPICAL PATCH TD SCH (17:08)
[2018-02-03] MEDS: INSULIN SLIDING SCALE (NOVOLOG) 1 VIAL SQ SCH ×2 (17:09→21:02)
[2018-02-03] MEDS: INSULIN (LEVEMIR) 100 UNITS/ML UNITS SQ SCH (21:03)
[2018-02-03] MEDS: CYCLOBENZAPRINE HCL 10 MG TABLET (FP) PO PRN (22:14)
[2018-02-03] MEDS: THIAMINE HCL 100 MG TABLET (FP) PO SCH (22:15)
[2018-02-03] MEDS: MELATONIN 5 MG TABLETS PO PRN (22:59)
[2018-02-04 00:35] LABS: URINE APPEARANCE CLEAR; URINE BILIRUBIN NEGATIVE (<2.0 mg/dL); URINE COLOR YELLOW; URINE GLUCOSE (UA) 3+ (NEGATIVE); URINE KETONE NEGATIVE (NEGATIVE); URINE LEUK ESTERASE NEGATIVE (NEGATIVE); URINE NITRITE NEGATIVE (NEGATIVE); URINE PROTEIN NEGATIVE (NEGATIVE); URINE UROBILINOGEN NEGATIVE mg/dL (0.2-1.0)
[2018-02-04] MEDS: diazePAM 5 MG TABLET PO PRN ×4 (05:31→22:10)
[2018-02-04] MEDS: metFORMIN HCL 500 MG TABLET (FP) PO SCH ×2 (06:13→17:26)
[2018-02-04] MEDS: CYCLOBENZAPRINE HCL 10 MG TABLET (FP) PO PRN ×2 (06:26→22:10)
[2018-02-04] MEDS: INSULIN SLIDING SCALE (NOVOLOG) 1 VIAL SQ SCH ×4 (06:28→22:11)
[2018-02-04] MEDS ORDERED: INSULIN (NOVOLOG) ASPART 100 UNITS/ML 10ML VIAL ONE ×3 (06:29→16:38)
[2018-02-04] MEDS ORDERED: METHADONE HCL 10 MG TABLET (FOR DETOX USE ONLY) PO ONE (10:00)
[2018-02-04] MEDS: PRENATAL VITAMINS W/ FOLIC ACID TABLET (FP) PO SCH (10:34)
[2018-02-04] MEDS: NICOTINE 21 MG/24 HOURS TOPICAL PATCH TD SCH (10:34)
[2018-02-04] MEDS: LISINOPRIL 20 MG TABLET (FP) PO SCH (10:35)
--- NOTE | 2018-02-04 11:29 | EKG ---
Test Reason : Blood Pressure : / mmHG Vent. Rate : 070 BPM Atrial Rate : 070 BPM P-R Int : 146 ms QRS Dur : 100 ms QT Int : 414 ms P-R-T Axes : 027 023 048 degrees QTc Int : 447 ms NORMAL SINUS RHYTHM NORMAL ECG WHEN COMPARED WITH ECG OF 27-AUG-2016 05:22, NONSPECIFIC T WAVE ABNORMALITY NO LONGER EVIDENT IN INFERIOR LEADS NONSPECIFIC T WAVE ABNORMALITY NO LONGER EVIDENT IN ANTEROLATERAL LEADS Confirmed by ALLI ALEJO, MARTY ([id number]) on 02/04/2018 11:29:03 AM Referred By: Confirmed By:MARTY CARSON MD
--- NOTE | 2018-02-04 11:31 | PN ---
BHS COWS - Scale Resting Pulse: 0= [place] 80 or Below Sweatin=Flushed/Facial Moisture Restless Observation: 0= Sits Still Pupil Size: 0= Normal to Room Light Bone or Joint Aches: 1= Mild Discomfort Runny Nose/ Eye Tearin= None GI Upset > 30mins: 0= None Tremor Observation of Outstretched Hands: 0= None Yawning Observation: 1= 1-2x During Session Anxiety or Irritability: 2=Irritable/Anxious Goose Flesh Skin: 3=Piloerection COWS Score: 9 BHS Progress Note (SOAP) Subjective: PATIENT WITH MILD DISCOMFORT, FLUSHING OF FACE, ANXIETY Objective: 02/04/18 11:29 Vital Signs Temperature 98.9 F 02/04/18 10:44 Pulse Rate 67 02/04/18 10:44 Respiratory Rate 18 02/04/18 10:44 Blood Pressure 106/78 02/04/18 10:44 O2 Sat by Pulse Oximetry (%) Laboratory Tests 02/03/18 02/03/18 02/03/18 14:48 17:04 20:49 POC Glucometer 468 466 394 Urine Color Urine Appearance Urine pH Ur Specific [place] Urine Protein Urine Glucose (UA) Urine Ketones Urine Blood Urine Nitrite Urine Bilirubin Urine Urobilinogen Ur Leukocyte Esterase 02/03/18 02/04/18 23:01 05:30 POC Glucometer 197 Urine Color Yellow Urine Appearance Clear Urine pH 5.0 Ur Specific [place] 1.043 H Urine Protein Negative Urine Glucose (UA) 3+ H Urine Ketones Negative Urine Blood Negative Urine Nitrite Negative Urine Bilirubin Negative Urine Urobilinogen Negative Ur Leukocyte Esterase Negative PE; SKIN +FLUSHED, MOIST SKIN ALERT AND ORIENTED AMB AD HUMPHREY TIRED, NOT ANSWERING ALL QUESTIONS DURING EVALUATION Assessment: 02/04/18 11:30 WITHDRAWAL SX Plan: CONTINUE DETOX ENCOURAGE ORAL FLUIDS CONTINUE TO MONITOR
[2018-02-04 14:15] LABS: HEMATOCRIT 42.3 % (35.4-49); HEMOGLOBIN 13.7 GM/dL (11.7-16.9); MCH 28.2 pg (25.7-33.7); MCHC 32.5 g/dl (32.0-35.9); MEAN CELL VOLUME 86.9 fl (80-96); MEAN PLT VOLUME 8.7 fl (7.5-11.1); PLATELET COUNT 179 K/MM3 (134-434); RBC 4.87 M/mm3 (4.00-5.60); RDW 13.3 % (11.9-15.9); WHITE BLOOD COUNT 6.8 K/mm3 (4.0-10.0)
[2018-02-04 14:46] LABS: ALBUMIN 3.2 g/dl (3.4-5.0); ALK PHOS 95 U/L (45-117); ANION GAP 9 MMOL/L (8-16); BILIRUBIN,TOTAL 0.3 mg/dL (0.2-1); BLOOD UREA NITROGEN 16 mg/dL (7-18); CALCIUM 8.8 mg/dL (8.5-10.1); CHLORIDE 98 mmol/L (98-107); CO2 30 mmol/L (21-32); CREATININE 0.7 mg/dL (0.55-1.3); GLUCOSE,RANDOM 214 mg/dL (74-106); POTASSIUM 3.5 mmol/L (3.5-5.1); SGOT/AST 9 U/L (15-37); SGPT/ALT 15 U/L (13-61); SODIUM 137 mmol/L (136-145); TOT PROT 6.1 g/dl (6.4-8.2)
[2018-02-04] MEDS: THIAMINE HCL 100 MG TABLET (FP) PO SCH (22:10)
[2018-02-04] MEDS: INSULIN (LEVEMIR) 100 UNITS/ML UNITS SQ SCH (22:11)
[2018-02-05] MEDS: diazePAM 5 MG TABLET PO PRN ×5 (02:44→20:34)
[2018-02-05] MEDS: metFORMIN HCL 500 MG TABLET (FP) PO SCH ×2 (07:08→18:06)
[2018-02-05] MEDS: INSULIN SLIDING SCALE (NOVOLOG) 1 VIAL SQ SCH ×4 (07:08→22:41)
[2018-02-05] MEDS ORDERED: INSULIN (NOVOLOG) ASPART 100 UNITS/ML 10ML VIAL ONE ×4 (07:10→21:59)
[2018-02-05] MEDS ORDERED: METHADONE HCL 5 MG TABLET (FOR DETOX USE ONLY) PO ONE (10:00)
[2018-02-05] MEDS: PRENATAL VITAMINS W/ FOLIC ACID TABLET (FP) PO SCH (10:33)
[2018-02-05] MEDS: LISINOPRIL 20 MG TABLET (FP) PO SCH (10:33)
[2018-02-05] MEDS: NICOTINE 21 MG/24 HOURS TOPICAL PATCH TD SCH (10:34)
[2018-02-05] MEDS: ACETAMINOPHEN 325 MG TABLET (FP) PO PRN (12:08)
--- NOTE | 2018-02-05 14:00 | PN ---
BHS COWS - Scale Resting Pulse: 0= [place] 80 or Below Sweatin=Flushed/Facial Moisture Restless Observation: 1= Difficult to Sit Still Pupil Size: 0= Normal to Room Light Bone or Joint Aches: 0= None Runny Nose/ Eye Tearin= None GI Upset > 30mins: 0= None Tremor Observation of Outstretched Hands: 0= None Yawning Observation: 1= 1-2x During Session Anxiety or Irritability: 2=Irritable/Anxious Goose Flesh Skin: 0=Smooth Skin COWS Score: 6 BHS Progress Note (SOAP) Subjective: PATIENT ANXIOUS AND RESTLESS. STATES "I FEEL VERY TIRED" Objective: 02/05/18 13:58 Vital Signs Temperature 98.6 F 02/05/18 13:35 Pulse Rate 92 H 02/05/18 13:35 Respiratory Rate 20 02/05/18 13:35 Blood Pressure 123/81 02/05/18 13:35 O2 Sat by Pulse Oximetry (%) Laboratory Tests 02/03/18 02/03/18 02/03/18 14:48 17:04 20:49 WBC RBC Hgb Hct MCV MCH MCHC RDW Plt Count MPV Sodium Potassium Chloride Carbon Dioxide Anion Gap BUN Creatinine Creat Clearance w eGFR POC Glucometer 468 466 394 Random Glucose Calcium Total Bilirubin AST ALT Alkaline Phosphatase Total Protein Albumin Urine Color Urine Appearance Urine pH Ur Specific [place] Urine Protein Urine Glucose (UA) Urine Ketones Urine Blood Urine Nitrite Urine Bilirubin Urine Urobilinogen Ur Leukocyte Esterase RPR Titer 02/03/18 02/04/18 02/04/18 23:01 05:30 07:15 WBC 6.8 RBC 4.87 Hgb 13.7 Hct 42.3 MCV 86.9 MCH 28.2 MCHC 32.5 RDW 13.3 Plt Count 179 MPV 8.7 Sodium Potassium Chloride Carbon Dioxide Anion Gap BUN Creatinine Creat Clearance w eGFR POC Glucometer 197 Random Glucose Calcium Total Bilirubin AST ALT Alkaline Phosphatase Total Protein Albumin Urine Color Yellow Urine Appearance Clear Urine pH 5.0 Ur Specific [place] 1.043 H Urine Protein Negative Urine Glucose (UA) 3+ H Urine Ketones Negative Urine Blood Negative Urine Nitrite Negative Urine Bilirubin Negative Urine Urobilinogen Negative Ur Leukocyte Esterase Negative RPR Titer 02/04/18 02/04/18 02/04/18 07:15 07:15 11:34 WBC RBC Hgb Hct MCV MCH MCHC RDW Plt Count MPV Sodium 137 Potassium 3.5 Chloride 98 Carbon Dioxide 30 Anion Gap 9 BUN 16 Creatinine 0.7 Creat Clearance w eGFR > 60 POC Glucometer 324 Random Glucose 214 H Calcium 8.8 Total Bilirubin 0.3 AST 9 L ALT 15 Alkaline Phosphatase 95 Total Protein 6.1 L Albumin 3.2 L Urine Color Urine Appearance Urine pH Ur Specific [place] Urine Protein Urine Glucose (UA) Urine Ketones Urine Blood Urine Nitrite Urine Bilirubin Urine Urobilinogen Ur Leukocyte Esterase RPR Titer Nonreactive 02/04/18 02/04/18 02/05/18 16:27 20:40 05:29 WBC RBC Hgb Hct MCV MCH MCHC RDW Plt Count MPV Sodium Potassium Chloride Carbon Dioxide Anion Gap BUN Creatinine Creat Clearance w eGFR POC Glucometer 304 304 165 Random Glucose Calcium Total Bilirubin AST ALT Alkaline Phosphatase Total Protein Albumin Urine Color Urine Appearance Urine pH Ur Specific [place] Urine Protein Urine Glucose (UA) Urine Ketones Urine Blood Urine Nitrite Urine Bilirubin Urine Urobilinogen Ur Leukocyte Esterase RPR Titer 02/05/18 11:56 WBC RBC Hgb Hct MCV MCH MCHC RDW Plt Count MPV Sodium Potassium Chloride Carbon Dioxide Anion Gap BUN Creatinine Creat Clearance w eGFR POC Glucometer 311 Random Glucose Calcium Total Bilirubin AST ALT Alkaline Phosphatase Total Protein Albumin Urine Color Urine Appearance Urine pH Ur Specific [place] Urine Protein Urine Glucose (UA) Urine Ketones Urine Blood Urine Nitrite Urine Bilirubin Urine Urobilinogen Ur Leukocyte Esterase RPR Titer SKIN +FLUSHING ALERT AND ORIENTED X 3 EXT FULL ROM Assessment: 02/05/18 13:59 WITHDRAWAL SX Plan: CONTINUE DETOX ORDERED ENCOURAGE ORAL FLUIDS CONTINUE TO MONITOR CLINICALLY
[2018-02-05] MEDS: THIAMINE HCL 100 MG TABLET (FP) PO SCH (22:30)
[2018-02-05] MEDS: INSULIN (LEVEMIR) 100 UNITS/ML UNITS SQ SCH (22:41)
[2018-02-06] MEDS: ACETAMINOPHEN 325 MG TABLET (FP) PO PRN (02:02)
[2018-02-06] MEDS: CYCLOBENZAPRINE HCL 10 MG TABLET (FP) PO PRN (02:02)
[2018-02-06] MEDS: diazePAM 5 MG TABLET PO PRN ×3 (02:02→11:44)
[2018-02-06] MEDS: metFORMIN HCL 500 MG TABLET (FP) PO SCH ×2 (07:16→17:36)
[2018-02-06] MEDS: INSULIN SLIDING SCALE (NOVOLOG) 1 VIAL SQ SCH ×4 (07:19→22:29)
[2018-02-06] MEDS ORDERED: INSULIN (NOVOLOG) ASPART 100 UNITS/ML 10ML VIAL ONE ×4 (07:21→21:34)
[2018-02-06] MEDS ORDERED: METHADONE HCL 5 MG TABLET (FOR DETOX USE ONLY) PO ONE (10:00)
[2018-02-06] MEDS: LISINOPRIL 20 MG TABLET (FP) PO SCH (10:18)
[2018-02-06] MEDS: NICOTINE 21 MG/24 HOURS TOPICAL PATCH TD SCH (10:18)
[2018-02-06] MEDS: PRENATAL VITAMINS W/ FOLIC ACID TABLET (FP) PO SCH (10:18)
--- NOTE | 2018-02-06 16:10 | PN ---
BHS Progress Note (SOAP) Subjective: Sweating, stomach ache, interrupted sleep Objective: 02/06/18 16:05 Last Vital Signs Temp Pulse Resp BP Pulse Ox 96.7 F L 100 H 20 120/83 02/06/18 13:48 02/06/18 13:48 02/06/18 13:48 02/06/18 13:48 Laboratory Tests 02/03/18 02/03/18 02/03/18 14:48 17:04 20:49 WBC RBC Hgb Hct MCV MCH MCHC RDW Plt Count MPV Sodium Potassium Chloride Carbon Dioxide Anion Gap BUN Creatinine Creat Clearance w eGFR POC Glucometer 468 466 394 Random Glucose Calcium Total Bilirubin AST ALT Alkaline Phosphatase Total Protein Albumin Urine Color Urine Appearance Urine pH Ur Specific [place] Urine Protein Urine Glucose (UA) Urine Ketones Urine Blood Urine Nitrite Urine Bilirubin Urine Urobilinogen Ur Leukocyte Esterase RPR Titer 02/03/18 02/04/18 02/04/18 23:01 05:30 07:15 WBC 6.8 RBC 4.87 Hgb 13.7 Hct 42.3 MCV 86.9 MCH 28.2 MCHC 32.5 RDW 13.3 Plt Count 179 MPV 8.7 Sodium Potassium Chloride Carbon Dioxide Anion Gap BUN Creatinine Creat Clearance w eGFR POC Glucometer 197 Random Glucose Calcium Total Bilirubin AST ALT Alkaline Phosphatase Total Protein Albumin Urine Color Yellow Urine Appearance Clear Urine pH 5.0 Ur Specific [place] 1.043 H Urine Protein Negative Urine Glucose (UA) 3+ H Urine Ketones Negative Urine Blood Negative Urine Nitrite Negative Urine Bilirubin Negative Urine Urobilinogen Negative Ur Leukocyte Esterase Negative RPR Titer 02/04/18 02/04/18 02/04/18 07:15 07:15 11:34 WBC RBC Hgb Hct MCV MCH MCHC RDW Plt Count MPV Sodium 137 Potassium 3.5 Chloride 98 Carbon Dioxide 30 Anion Gap 9 BUN 16 Creatinine 0.7 Creat Clearance w eGFR > 60 POC Glucometer 324 Random Glucose 214 H Calcium 8.8 Total Bilirubin 0.3 AST 9 L ALT 15 Alkaline Phosphatase 95 Total Protein 6.1 L Albumin 3.2 L Urine Color Urine Appearance Urine pH Ur Specific [place] Urine Protein Urine Glucose (UA) Urine Ketones Urine Blood Urine Nitrite Urine Bilirubin Urine Urobilinogen Ur Leukocyte Esterase RPR Titer Nonreactive 02/04/18 02/04/18 02/05/18 16:27 20:40 05:29 WBC RBC Hgb Hct MCV MCH MCHC RDW Plt Count MPV Sodium Potassium Chloride Carbon Dioxide Anion Gap BUN Creatinine Creat Clearance w eGFR POC Glucometer 304 304 165 Random Glucose Calcium Total Bilirubin AST ALT Alkaline Phosphatase Total Protein Albumin Urine Color Urine Appearance Urine pH Ur Specific [place] Urine Protein Urine Glucose (UA) Urine Ketones Urine Blood Urine Nitrite Urine Bilirubin Urine Urobilinogen Ur Leukocyte Esterase RPR Titer 02/05/18 02/05/18 02/05/18 11:56 16:25 20:38 WBC RBC Hgb Hct MCV MCH MCHC RDW Plt Count MPV Sodium Potassium Chloride Carbon Dioxide Anion Gap BUN Creatinine Creat Clearance w eGFR POC Glucometer 311 217 370 Random Glucose Calcium Total Bilirubin AST ALT Alkaline Phosphatase Total Protein Albumin Urine Color Urine Appearance Urine pH Ur Specific [place] Urine Protein Urine Glucose (UA) Urine Ketones Urine Blood Urine Nitrite Urine Bilirubin Urine Urobilinogen Ur Leukocyte Esterase RPR Titer 02/06/18 02/06/18 07:16 11:40 WBC RBC Hgb Hct MCV MCH MCHC RDW Plt Count MPV Sodium Potassium Chloride Carbon Dioxide Anion Gap BUN Creatinine Creat Clearance w eGFR POC Glucometer 181 275 Random Glucose Calcium Total Bilirubin AST ALT Alkaline Phosphatase Total Protein Albumin Urine Color Urine Appearance Urine pH Ur Specific [place] Urine Protein Urine Glucose (UA) Urine Ketones Urine Blood Urine Nitrite Urine Bilirubin Urine Urobilinogen Ur Leukocyte Esterase RPR Titer Labs reviewed: UA 3+ glucose, hyperglycemia r/t DMT2 Assessment: 02/06/18 16:07 Withdrawal symptoms Noted with glycosuria and hyperglycemia Plan: Continue detox Glycosuria: encouraged PO water intake, repeat UA Hyperglycemia: due to DMT2, continue diabetic regimen
[2018-02-06] MEDS ORDERED: hydrOXYzine PAMOATE 25 MG CAPSULE (FP) PO ONE (21:36)
[2018-02-06] MEDS: INSULIN (LEVEMIR) 100 UNITS/ML UNITS SQ SCH (22:29)
[2018-02-06] MEDS: THIAMINE HCL 100 MG TABLET (FP) PO SCH (22:30)
[2018-02-07] MEDS: IBUPROFEN 400 MG TABLET (FP) PO PRN ×2 (05:52→17:47)
[2018-02-07] MEDS: metFORMIN HCL 500 MG TABLET (FP) PO SCH ×2 (06:17→17:46)
[2018-02-07] MEDS: INSULIN SLIDING SCALE (NOVOLOG) 1 VIAL SQ SCH ×4 (06:31→21:06)
[2018-02-07] MEDS ORDERED: INSULIN (NOVOLOG) ASPART 100 UNITS/ML 10ML VIAL ONE ×4 (06:31→21:12)
[2018-02-07] MEDS: LISINOPRIL 20 MG TABLET (FP) PO SCH (09:45)
[2018-02-07] MEDS: PRENATAL VITAMINS W/ FOLIC ACID TABLET (FP) PO SCH (09:45)
[2018-02-07] MEDS: NICOTINE 21 MG/24 HOURS TOPICAL PATCH TD SCH (09:46)
[2018-02-07] MEDS ORDERED: METHADONE HCL 10 MG TABLET (FOR DETOX USE ONLY) PO ONE (10:00)
[2018-02-07] MEDS: hydrOXYzine PAMOATE 25 MG CAPSULE (FP) PO PRN ×2 (14:20→19:34)
--- NOTE | 2018-02-07 16:11 | PN ---
[facility] Progress Note Note: Vital Signs Temperature 98.4 F 02/07/18 13:57 Pulse Rate 85 02/07/18 13:57 Respiratory Rate 20 02/07/18 13:57 Blood Pressure 116/80 02/07/18 13:57 O2 Sat by Pulse Oximetry (%) Laboratory Last Values WBC 6.8 K/mm3 (4.0-10.0) 02/04/18 07:15 RBC 4.87 M/mm3 (4.00-5.60) 02/04/18 07:15 Hgb 13.7 GM/dL (11.7-16.9) 02/04/18 07:15 Hct 42.3 % (35.4-49) 02/04/18 07:15 MCV 86.9 fl (80-96) 02/04/18 07:15 MCH 28.2 pg (25.7-33.7) 02/04/18 07:15 MCHC 32.5 g/dl (32.0-35.9) 02/04/18 07:15 RDW 13.3 % (11.9-15.9) 02/04/18 07:15 Plt Count 179 K/MM3 (134-434) 02/04/18 07:15 MPV 8.7 fl (7.5-11.1) 02/04/18 07:15 Sodium 137 mmol/L (136-145) 02/04/18 07:15 Potassium 3.5 mmol/L (3.5-5.1) 02/04/18 07:15 Chloride 98 mmol/L (98-107) 02/04/18 07:15 Carbon Dioxide 30 mmol/L (21-32) 02/04/18 07:15 Anion Gap 9 MMOL/L (8-16) 02/04/18 07:15 BUN 16 mg/dL (7-18) 02/04/18 07:15 Creatinine 0.7 mg/dL (0.55-1.3) 02/04/18 07:15 Creat Clearance w eGFR > 60 (>60) 02/04/18 07:15 POC Glucometer 400 UNITS (80-120) 02/07/18 11:44 Random Glucose 214 mg/dL (74-106) H 02/04/18 07:15 Calcium 8.8 mg/dL (8.5-10.1) 02/04/18 07:15 Total Bilirubin 0.3 mg/dL (0.2-1) 02/04/18 07:15 AST 9 U/L (15-37) L 02/04/18 07:15 ALT 15 U/L (13-61) 02/04/18 07:15 Alkaline Phosphatase 95 U/L (45-117) 02/04/18 07:15 Total Protein 6.1 g/dl (6.4-8.2) L 02/04/18 07:15 Albumin 3.2 g/dl (3.4-5.0) L 02/04/18 07:15 Urine Color Yellow 02/03/18 23:01 Urine Appearance Clear 02/03/18 23:01 Urine pH 5.0 (5.0-8.0) 02/03/18 23:01 Ur Specific [place] 1.043 (1.010-1.035) H 02/03/18 23:01 Urine Protein Negative (NEGATIVE) 02/03/18 23:01 Urine Glucose (UA) 3+ (NEGATIVE) H 02/03/18 23:01 Urine Ketones Negative (NEGATIVE) 02/03/18 23:01 Urine Blood Negative (NEGATIVE) 02/03/18 23:01 Urine Nitrite Negative (NEGATIVE) 02/03/18 23:01 Urine Bilirubin Negative (<2.0 mg/dL) 02/03/18 23:01 Urine Urobilinogen Negative mg/dL (0.2-1.0) 02/03/18 23:01 Ur Leukocyte Esterase Negative (NEGATIVE) 02/03/18 23:01 RPR Titer Nonreactive (NONREACTIVE) 02/04/18 07:15 c/o of back ache, constipation, interrupted sleep Aox3 no distress full ROM ambulating in the unit withdrawal sx increase PO fluids continue detox d/c in AM
[2018-02-07] MEDS: INSULIN (LEVEMIR) 100 UNITS/ML UNITS SQ SCH (21:05)
[2018-02-07] MEDS: THIAMINE HCL 100 MG TABLET (FP) PO SCH (21:06)
[2018-02-07] MEDS: CYCLOBENZAPRINE HCL 10 MG TABLET (FP) PO PRN (21:07)
[2018-02-07] MEDS: MELATONIN 5 MG TABLETS PO PRN (21:07)
[2018-02-08] MEDS ORDERED: METHADONE HCL 5 MG TABLET (FOR DETOX USE ONLY) PO ONE (06:00)
[2018-02-08 06:16] VITALS: BP 112/75; PULSE 72; TEMP 97.3
[2018-02-08] MEDS: metFORMIN HCL 500 MG TABLET (FP) PO SCH (06:16)
[2018-02-08] MEDS: INSULIN SLIDING SCALE (NOVOLOG) 1 VIAL SQ SCH (08:00)
--- NOTE | 2018-02-08 10:51 | DS ---
[facility] Detox Discharge Summary Admission Date: 02/03/18 Discharge Date: 02/08/18 - History Present History: Opioid Dependence Pertinent Past History: Opioid dependence Nicotine dependence CAD DMT2 with hyperglycemia HTN PPD Positive - Physical Exam Results Vital Signs: Vital Signs Temperature 97.3 F L 02/08/18 06:15 Pulse Rate 72 02/08/18 06:15 Respiratory Rate 16 02/08/18 06:15 Blood Pressure 112/75 02/08/18 06:15 O2 Sat by Pulse Oximetry (%) Pertinent Admission Physical Exam Findings: Withdrawal symptoms Laboratory Tests 02/03/18 02/03/18 02/03/18 14:48 17:04 20:49 WBC RBC Hgb Hct MCV MCH MCHC RDW Plt Count MPV Sodium Potassium Chloride Carbon Dioxide Anion Gap BUN Creatinine Creat Clearance w eGFR POC Glucometer 468 466 394 Random Glucose Calcium Total Bilirubin AST ALT Alkaline Phosphatase Total Protein Albumin Urine Color Urine Appearance Urine pH Ur Specific [place] Urine Protein Urine Glucose (UA) Urine Ketones Urine Blood Urine Nitrite Urine Bilirubin Urine Urobilinogen Ur Leukocyte Esterase RPR Titer 02/03/18 02/04/18 02/04/18 23:01 05:30 07:15 WBC 6.8 RBC 4.87 Hgb 13.7 Hct 42.3 MCV 86.9 MCH 28.2 MCHC 32.5 RDW 13.3 Plt Count 179 MPV 8.7 Sodium Potassium Chloride Carbon Dioxide Anion Gap BUN Creatinine Creat Clearance w eGFR POC Glucometer 197 Random Glucose Calcium Total Bilirubin AST ALT Alkaline Phosphatase Total Protein Albumin Urine Color Yellow Urine Appearance Clear Urine pH 5.0 Ur Specific [place] 1.043 H Urine Protein Negative Urine Glucose (UA) 3+ H Urine Ketones Negative Urine Blood Negative Urine Nitrite Negative Urine Bilirubin Negative Urine Urobilinogen Negative Ur Leukocyte Esterase Negative RPR Titer 02/04/18 02/04/18 02/04/18 07:15 07:15 11:34 WBC RBC Hgb Hct MCV MCH MCHC RDW Plt Count MPV Sodium 137 Potassium 3.5 Chloride 98 Carbon Dioxide 30 Anion Gap 9 BUN 16 Creatinine 0.7 Creat Clearance w eGFR > 60 POC Glucometer 324 Random Glucose 214 H Calcium 8.8 Total Bilirubin 0.3 AST 9 L ALT 15 Alkaline Phosphatase 95 Total Protein 6.1 L Albumin 3.2 L Urine Color Urine Appearance Urine pH Ur Specific [place] Urine Protein Urine Glucose (UA) Urine Ketones Urine Blood Urine Nitrite Urine Bilirubin Urine Urobilinogen Ur Leukocyte Esterase RPR Titer Nonreactive 02/04/18 02/04/18 02/05/18 16:27 20:40 05:29 WBC RBC Hgb Hct MCV MCH MCHC RDW Plt Count MPV Sodium Potassium Chloride Carbon Dioxide Anion Gap BUN Creatinine Creat Clearance w eGFR POC Glucometer 304 304 165 Random Glucose Calcium Total Bilirubin AST ALT Alkaline Phosphatase Total Protein Albumin Urine Color Urine Appearance Urine pH Ur Specific [place] Urine Protein Urine Glucose (UA) Urine Ketones Urine Blood Urine Nitrite Urine Bilirubin Urine Urobilinogen Ur Leukocyte Esterase RPR Titer 02/05/18 02/05/18 02/05/18 11:56 16:25 20:38 WBC RBC Hgb Hct MCV MCH MCHC RDW Plt Count MPV Sodium Potassium Chloride Carbon Dioxide Anion Gap BUN Creatinine Creat Clearance w eGFR POC Glucometer 311 217 370 Random Glucose Calcium Total Bilirubin AST ALT Alkaline Phosphatase Total Protein Albumin Urine Color Urine Appearance Urine pH Ur Specific [place] Urine Protein Urine Glucose (UA) Urine Ketones Urine Blood Urine Nitrite Urine Bilirubin Urine Urobilinogen Ur Leukocyte Esterase RPR Titer 02/06/18 02/06/18 02/06/18 07:16 11:40 16:31 WBC RBC Hgb Hct MCV MCH MCHC RDW Plt Count MPV Sodium Potassium Chloride Carbon Dioxide Anion Gap BUN Creatinine Creat Clearance w eGFR POC Glucometer 181 275 236 Random Glucose Calcium Total Bilirubin AST ALT Alkaline Phosphatase Total Protein Albumin Urine Color Urine Appearance Urine pH Ur Specific [place] Urine Protein Urine Glucose (UA) Urine Ketones Urine Blood Urine Nitrite Urine Bilirubin Urine Urobilinogen Ur Leukocyte Esterase RPR Titer 02/06/18 02/07/18 02/07/18 20:35 05:50 11:44 WBC RBC Hgb Hct MCV MCH MCHC RDW Plt Count MPV Sodium Potassium Chloride Carbon Dioxide Anion Gap BUN Creatinine Creat Clearance w eGFR POC Glucometer 412 134 400 Random Glucose Calcium Total Bilirubin AST ALT Alkaline Phosphatase Total Protein Albumin Urine Color Urine Appearance Urine pH Ur Specific [place] Urine Protein Urine Glucose (UA) Urine Ketones Urine Blood Urine Nitrite Urine Bilirubin Urine Urobilinogen Ur Leukocyte Esterase RPR Titer 02/07/18 02/07/18 02/08/18 16:18 20:54 05:53 WBC RBC Hgb Hct MCV MCH MCHC RDW Plt Count MPV Sodium Potassium Chloride Carbon Dioxide Anion Gap BUN Creatinine Creat Clearance w eGFR POC Glucometer 307 286 207 Random Glucose Calcium Total Bilirubin AST ALT Alkaline Phosphatase Total Protein Albumin Urine Color Urine Appearance Urine pH Ur Specific [place] Urine Protein Urine Glucose (UA) Urine Ketones Urine Blood Urine Nitrite Urine Bilirubin Urine Urobilinogen Ur Leukocyte Esterase RPR Titer Labs reviewed: UA 3+ glucose, ordered for repeat but patient refused, instructed to follow up with PCP - Treatment Hospital Course: Detox Protocol Followed, Detoxed Safely, Responded well, Discharged Condition Good - Medication Discharge Medications: Ambulatory Orders Insulin (Novolog) [Novolog -] 0 units SQ TID PRN 10/29/13 Quetiapine Fumarate [Seroquel -] 50 mg PO HS #30 tablet 11/03/13 metFORMIN HCL [Glucophage -] 500 mg PO BID@0700,1630 #60 tablet 11/03/13 Insulin Glargine,Hum.rec.anlog [Lantus Solostar PEN -] 26 units SQ HS 02/03/18 Lisinopril [Prinivil] 20 mg PO DAILY 02/03/18 - Diagnosis (1) Glycosuria Status: Acute (2) Type 2 diabetes mellitus with hyperglycemia Status: Acute (3) Essential hypertension Status: Chronic (4) Positive PPD Status: Chronic (5) Nicotine dependence Status: Chronic (6) coronary artery disease with stent Status: Chronic (7) Opioid dependence Status: Acute - AMA Did Patient Leave Against Medical Advice: No (F/U with your PCP within 1-2 weeks )
== END 2018-02-08 08:36 | disposition home or self-care (01) | DRG 773 ==
LOC: YASAS 12:17 → Y3N 15:37
PROC: HZ2ZZZZ Detoxification Services for Substance Abuse Treatment (ICD-10-PCS; principal; 2018-02-03)
DX: F11.23 Opioid dependence with withdrawal (principal); F17.210 Nicotine dependence, cigarettes, uncomplicated; I25.10 Atherosclerotic heart disease of native coronary artery without angina pectoris; I10 Essential (primary) hypertension; Z95.5 Presence of coronary angioplasty implant and graft; E11.65 Type 2 diabetes mellitus with hyperglycemia; Z79.4 Long term (current) use of insulin; R81 Glycosuria; R63.4 Abnormal weight loss; Z68.24 Body mass index [BMI] 24.0-24.9, adult; Z94.5 Skin transplant status
CPT/HCPCS: 36415; 80053; 81003; 82962; 85027; 86593; 93005; 93010